=== PATIENT | female | born 1965 ===

== ENCOUNTER 2016-12-12 12:08 | Emergency (ER) | payer MEDICARE, OTHER ==
[2016-12-12 12:17] VITALS: TEMP 97.8
--- NOTE | 2016-12-12 12:52 | C.PDOC ---
Time Seen by Provider: 12/12/16 12:38 Chief Complaint (Nursing): Headache Past Medical History Vital Signs: Last Vital Signs Temp 97.8 F 12/12/16 12:15 Pulse 99 H 12/12/16 12:15 Resp 20 12/12/16 12:15 BP 134/79 12/12/16 12:15 Pulse Ox 98 12/12/16 12:15 - Medical History PMH: Arthritis, Back Problems, HTN, Rheumatoid Arthritis Surgical History: Back Surgery Family History: States: Unknown Family Hx - Social History Hx Alcohol Use: No Hx Substance Use: No - Immunization History Hx Tetanus Toxoid Vaccination: Yes Hx Influenza Vaccination: Yes Hx Pneumococcal Vaccination: Yes ED Course And Treatment O2 Sat by Pulse Oximetry: 98 Disposition - Disposition Forms: [employer] (Burmese)
[2016-12-12] MEDS ORDERED: DiphenhydrAMINE 50 mg/ml Inj IVP STA (12:57)
--- NOTE | 2016-12-12 13:06 | C.PDOC ---
History Of Present Illness <Shayna Daniel - Last Filed: 12/12/16 14:44> <Saul Cronin - Last Filed: 12/12/16 15:01> 51 year old female with a past medical history of RA, hypertension and migraines presents today with a headache that started on Saturday which has been present since then and getting worsen. She states is is located over her left eye and radiates over the left side of hear head to the back of ear/base of neck. Feels like someone is "hitting me in the head". She took tramadol for the pain without relief. Associated with tearing of the left eye. She reports that 3 weeks ago she had a left sided ear infection and completed a 5 days course of antibiotics and also had this type of headache then. She was diagnosed with migraines 6 years ago and took a medication for one year to help but hasn't taken this for a while. She denies trauma to the head. She denies fever, chills , N/V, photophobia, sore throat, CP, SOB, changes in vision, visual changes, earpain/discharge. (Shayna Daniel) pt seen with resident. left sided price. ear pain, h/o of ra. pt with mild temporal ttp. neuro intact, sed rate normal, no leukocytosis, pain improve.d imagin neg. pt asking for d/c stable for outpt management. return precauitons adviesd. (Saul Cronin) History Per: Patient History/Exam Limitations: no limitations Onset/Duration Of Symptoms: Days Current Symptoms Are (Timing): Still Present Severity: Moderate Pain Scale Rating Of: 6 Quality: Sharp, Dull, Pressure, Squeezing Preceeding Symptoms: None Associated Symptoms: denies: Photophobia, Blurred Vision, Nausea, Vomiting Recent travel outside of the [place]: No <Shayna Daniel - Last Filed: 12/12/16 14:44> <Saul Cronin - Last Filed: 12/12/16 15:01> Time Seen by Provider: 12/12/16 12:38 Chief Complaint (Nursing): Headache Past Medical History - Medical History PMH: Arthritis, Back Problems, HTN, Rheumatoid Arthritis Surgical History: Back Surgery Family History: States: Unknown Family Hx - Social History Hx Tobacco Use: No Hx Alcohol Use: No Hx Substance Use: No - Immunization History Hx Tetanus Toxoid Vaccination: Yes Hx Influenza Vaccination: Yes Hx Pneumococcal Vaccination: Yes <FredyShayna - Last Filed: 12/12/16 14:44> Review Of Systems Constitutional: Negative for: Fever, Chills Eyes: Positive for: Other (tearing from left eye). Negative for: Pain, Vision Change ENT: Negative for: Ear Pain, Ear Discharge, Nose Congestion Cardiovascular: Negative for: Chest Pain, Palpitations Respiratory: Negative for: Cough, Shortness of Breath Gastrointestinal: Negative for: Nausea, Vomiting, Abdominal Pain Genitourinary: Negative for: Dysuria Musculoskeletal: Negative for: Neck Pain, Shoulder Pain, Arm Pain, Back Pain Neurological: Positive for: Headache. Negative for: Weakness, Numbness, Dizziness <FredyShayna - Last Filed: 12/12/16 14:44> Physical Exam - Physical Exam Appears: Well, Non-toxic, Toxic Skin: Normal Color, Warm, Dry Head: Atraumatic, Tenderness, Other (tender to left congregation around back of head to base of neck) Ear(s): Left: Normal (opaque, TM intact, no discharge), Right: Normal Nose: Normal Oral Mucosa: Moist, Dry Tongue: Normal Appearing Lips: Normal Appearing Teeth: Normal Dentition Neck: Normal, Normal ROM Lymphatic: Normal Exam Cardiovascular: Rhythm Regular Respiratory: Normal Breath Sounds Gastrointestinal/Abdominal: Bowel Sounds, Soft, No Tenderness Neurological/Psych: Oriented x3, Normal Speech Gait: Steady <FredyShayna - Last Filed: 12/12/16 14:44> ED Course And Treatment - Laboratory Results Result Diagrams: 12/12/16 13:19 12/12/16 13:19 O2 Sat by Pulse Oximetry: 98 <FredyShayna - Last Filed: 12/12/16 14:44> - Laboratory Results Result Diagrams: 12/12/16 13:19 12/12/16 13:19 <Saul Cronin - Last Filed: 12/12/16 15:01> Medical Decision Making <FredyShayna - Last Filed: 12/12/16 14:44> <Saul Cronin - Last Filed: 12/12/16 15:01> Medical Decision Making: Plan: - Benadryl - Reglan - CBC, CMP, ESR, UA - Head CT w/o contrast Impression: Otitis Media, acute headache likely cluster/migraine CBC/CMP within normal limits. UA negative. ESR not elevated. Head CT showed no acute pathology but incidental 5mm dural based meningioma along the right vertex. (Shayna Daniel) Disposition - Disposition Disposition Time: 14:45 <Shayna Daniel - Last Filed: 12/12/16 14:44> <Saul Cronin - Last Filed: 12/12/16 15:01> - Disposition Referrals: [facility] [Outside] [facility] [Outside] Chas Lara MD [Staff Provider] - Disposition: HOME/ ROUTINE Condition: GOOD Additional Instructions: please follow up with your doctor/clinic and specialist. return to er with worsening symptoms or concerns. Prescriptions: Amoxicillin [Amoxil 500 mg Cap] 500 mg PO TID #21 cap Instructions: Otitis Media (ED), Acute Headache (ED) Forms: [employer] (Turkish) - Clinical Impression Clinical Impression: Headache, Acute headache, Otitis media
[2016-12-12 13:26] LABS: BASO % 0.6 % (0.0-2.0); EOS # 0.1 K/uL (0.0-0.7); EOS % 1.5 % (0.0-4.0); LYMPH # 2.1 K/uL (1.0-4.3); LYMPH % 28.8 % (20.0-40.0); MEAN CELL VOLUME 89.6 fL (81.0-99.0); MEAN CORPUSCULAR HEMOGLOBIN 31.1 pg (27.0-31.0); MEAN CORPUSCULAR HGB CONC 34.7 g/dL (33.0-37.0); MEAN PLATELET VOLUME 7.7 fL (7.2-11.7); MONO # 0.7 K/uL (0.0-0.8); MONO % 9.2 % (0.0-10.0); NRBC % 0.1 % (0.0-2.0); RED CELL DISTRIBUTION WIDTH 13.2 % (11.5-14.5); WHITE BLOOD COUNT 7.3 K/uL (4.8-10.8)
[2016-12-12 13:36] LABS: CHLORIDE 99 mmol/L (98-107); POTASSIUM 3.4 mmol/L (3.6-5.2); SODIUM 143 mmol/L (132-148)
[2016-12-12 13:38] LABS: GFR AFRICAN-AMERICAN > 60
[2016-12-12 13:39] LABS: ALB/GLOB RATIO 1.6 (1.0-2.1); ALKALINE PHOSPHATASE 70 U/L (38-126); ALT/SGPT 36 U/L (9-52); AST/SGOT 29 U/L (14-36); BLOOD UREA NITROGEN 12 mg/dL (7-17); CALCIUM 9.2 mg/dl (8.6-10.4); CARBON DIOXIDE 30 mmol/L (22-30); GLUCOSE,RANDOM 104 mg/dL (65-105); TOTAL PROTEIN 7.1 g/dL (6.3-8.3)
[2016-12-12 13:42] LABS: RBC URINE 2 /hpf (0-3); URINE BILIRUBIN NEGATIVE (NEGATIVE); URINE BLOOD NEGATIVE (NEGATIVE); URINE COLOR Yellow (YELLOW); URINE GLUCOSE (UA) NORMAL (Normal); URINE KETONE NEGATIVE (NEGATIVE); URINE LEUKOCYTE ESTERASE NEG Leu/uL (Negative); URINE PROTEIN NEGATIVE (NEGATIVE); URINE UROBILINOGEN NORMAL mg/dL (0.2-1.0); WBC URINE < 1 /hpf (0-5)
--- NOTE | 2016-12-12 14:30 | CT ---
PROCEDURE: CT HEAD WITHOUT CONTRAST. HISTORY: price COMPARISON: None available. TECHNIQUE: Axial computed tomography images were obtained through the head/brain without intravenous contrast. Radiation dose: Total exam DLP = 967.35 mGy-cm. This CT exam was performed using one or more of the following dose reduction techniques: Automated exposure control, adjustment of the mA and/or kV according to patient size, and/or use of iterative reconstruction technique. FINDINGS: HEMORRHAGE: No intracranial hemorrhage. BRAIN: No mass effect or edema. 5 mm dural based calcification or incidental meningioma along the right vertex (coronal image 103). The espinoza-white matter differentiation appears intact.Please note that MRI with diffusion imaging is more sensitive in the detection of acute ischemic event. VENTRICLES: No hydrocephalus. CALVARIUM: Unremarkable. PARANASAL SINUSES: Unremarkable as visualized. No significant inflammatory changes. MASTOID AIR CELLS: Unremarkable as visualized. No inflammatory changes. OTHER FINDINGS: None. IMPRESSION: No acute intracranial pathology identified. 5 mm dural based calcification or incidental meningioma along the right vertex.
[2016-12-12 14:57] VITALS: BP 108/74; PULSE 72; RESP 16; O2SAT 96
== END 2016-12-12 14:58 | disposition home or self-care (01) ==
LOC: C.ER 12:08
DX: R51 Headache (principal); H66.92 Otitis media, unspecified, left ear
CPT/HCPCS: 70450; 80053; 81001; 84703; 85025; 85651; 96374; 96375; 99285; J1200; J2765

== ENCOUNTER 2018-06-23 11:18 | Outpatient (CLI) | payer MEDICARE, OTHER | END 2018-06-23 11:19 | disposition home or self-care (01) | LOC: C.RADIC 11:18 | DX: R05 Cough (principal); J20.9 Acute bronchitis, unspecified; M25.511 Pain in right shoulder ==

== ENCOUNTER 2018-08-30 11:04 | Outpatient (CLI) | payer MEDICARE, OTHER | END 2018-08-30 11:05 | disposition home or self-care (01) | LOC: C.MRIC 11:04 | DX: M75.101 Unspecified rotator cuff tear or rupture of right shoulder, not specified as traumatic (principal) ==

== ENCOUNTER 2018-09-10 10:31 | Outpatient (CLI) | payer MEDICARE, OTHER | END 2018-09-10 10:32 | disposition home or self-care (01) | LOC: C.DEXAIC 10:31 | DX: Z13.820 Encounter for screening for osteoporosis (principal) ==